=== PATIENT | female | born 1955 | race Caucasian/White ===

== ENCOUNTER 2018-12-26 08:47 | Day surgery (SDC) | payer MEDICARE, MEDICAID ==
[~2018-12-26 08:47] MED LIST: ALEN70TA60 PO; AMIT25TA9 PO; ASPI-611 PO; CHLO25TA10 PO; HYDR-4353 PO; INSU100I31 SQ; LOSA50TA64 PO; LOVA20TA2 PO; METF500T PO; METO25TA6 PO; OMEP40CA13 PO; PIOG30TA71 PO
[2018-12-26] MEDS ORDERED: LIDOcaine/PRILOcaine 5gm cream TP ONE (09:42)
--- NOTE | 2018-12-26 16:03 | NUR ---
Patient ambulated independently from [facility] and was admitted to outpatient wound care clinic for first time visit with physician. Dressings removed, wounds cleansed and lidocaine applied per order. Patient assessed and medications and medical history reviewed. Dr. Stanford at bedside accompanied by RN. Wounds assessed, time out performed by MD/RN. Wounds debrided as detailed in the physician progress/procedure note. Wound vac was ordered. Plan of care discussed with patient. Dressings and wound vac applied per physician orders. Patient instructed on the signs and symptoms of infection and to call the Wound Center if any occur or to go to the ED if we are closed: Increased pain in wound Increase in drainage from the wound Redness in the skin surrounding the wound Bleeding from the wound Temperature of 101 or greater Pt instructed that they should not be disconnected from suction for more than 2 hours at a time. If they are not able to get the suction back on they need to remove the dressing and take all of the foam out of the wound, place hydrogel gauze on/in the wound, and change the dressing daily until someone can replace the dressing. Pt instructed to call the Wound Center or their Home Health Agency immediately if they notice a change in the color or amount of the fluid in the canister, their wound looks more red than usual or has a foul smell, the skin around their wound looks reddened or irritated, the dressing feels or appears loose, they experience pain or the alarm will not turn off. Pt instructed to call 911 or go to the ED if their canister fills rapidly with blood. Patient instructed that the weight of their body puts a large amount of pressure on their wounds. This pressure keeps the new tissue from growing and inhibits new blood vessels from forming. Explained that, if they continue to bear weight on a body part that has a wound, the time it takes to heal the wound increases, the wound may get worse or the wound may not heal at all. Patient verbalized understanding of all discharge instructions and plan of care and ambulated independently out to [facility] in stable condition with no sign or symptom of distress at time of discharge. Addendum: 12/26/18 at 1607 by Eden Yuan RN Amended: Links added.
== END 2018-12-26 11:04 | disposition home or self-care (01) ==
LOC: WOUND CARE 08:47
PROVIDERS: ATTEND Surgery
DX: T81.89XA Other complications of procedures, not elsewhere classified, initial encounter (principal); E11.65 Type 2 diabetes mellitus with hyperglycemia; I25.10 Atherosclerotic heart disease of native coronary artery without angina pectoris; G89.4 Chronic pain syndrome; E78.5 Hyperlipidemia, unspecified; E78.00 Pure hypercholesterolemia, unspecified; J45.909 Unspecified asthma, uncomplicated; M19.90 Unspecified osteoarthritis, unspecified site; E66.01 Morbid (severe) obesity due to excess calories; I11.0 Hypertensive heart disease with heart failure; I50.32 Chronic diastolic (congestive) heart failure; F41.9 Anxiety disorder, unspecified; Z79.82 Long term (current) use of aspirin; Z68.35 Body mass index [BMI] 35.0-35.9, adult; Z79.4 Long term (current) use of insulin; Z87.891 Personal history of nicotine dependence; Z79.899 Other long term (current) drug therapy; Z79.84 Long term (current) use of oral hypoglycemic drugs; Z90.49 Acquired absence of other specified parts of digestive tract; Z95.1 Presence of aortocoronary bypass graft; Z79.891 Long term (current) use of opiate analgesic; Y83.8 Other surgical procedures as the cause of abnormal reaction of the patient, or of later complication, without mention of misadventure at the time of the procedure
CPT/HCPCS: 97597; 97605; A4663

== ENCOUNTER 2018-12-31 12:38 | Inpatient (IN) | payer MEDICARE, MEDICAID ==
[~2018-12-31] VITALS: Ht 165.1 cm; Wt 96.0 kg
[2018-12-31 13:31] LABS: BASOPHILS % (AUTO) 0.6 % (0-1); EOSINOPHILS # (AUTO) 0.1 X10'3 (0-0.9); EOSINOPHILS % (AUTO) 1.4 % (0-6); HEMATOCRIT 32.7 % (35.0-45.0); HEMOGLOBIN 10.4 g/dl (12.0-16.0); LYMPHOCYTES # (AUTO) 1.2 X10'3 (1.1-4.8); MEAN CORPUSCULAR HEMOGLOBIN 25.5 PG (27.0-31.0); MEAN CORPUSCULAR HGB CONC 31.8 g/dL (33.0-36.5); MEAN CORPUSCULAR VOLUME 80.1 FL (78-98); MEAN PLATELET VOLUME 7.2 FL (7.4-10.4); MONOCYTES # (AUTO) 0.6 X10'3 (0-0.9); MONOCYTES % (AUTO) 9.5 % (2-12); NEUTROPHILS # (AUTO) 4.5 X10'3 (1.8-7.7); NEUTROPHILS % (AUTO) 70.5 % (42-75); PLATELET COUNT 297 X10'3 (140-440); RED BLOOD COUNT 4.08 X10'6 (4.20-5.60); RED CELL DISTRIBUTION WIDTH 16.1 % (11.5-14.5); WHITE BLOOD COUNT 6.4 X10'3 (4.5-11.0)
[2018-12-31 13:35] LABS: CLARITY,URINE CLOUDY (Clear); COLOR,URINE YELLOW (Yellow); GLUCOSE, URINE NEGATIVE (Neg); KETONES,URINE TRACE mg/dl (Neg); LEUKOCYTE ESTERASE ,URINE NEGATIVE (Neg); NITRITES, URINE NEGATIVE (Neg); OCCULT BLOOD,URINE NEGATIVE (Neg); PH,URINE 5.5 (4.8-8.0); PROTEIN,URINE 30 mg/dl (Neg); UA COLLECTION TYPE VOIDED; UROBILINOGEN,URINE 0.2 E.U/dL (0.2-1.0)
[2018-12-31 13:44] LABS: AMORPHOUS URATES 2+; BACTERIA,URINE FEW /HPF (Neg); HYALINE CASTS >30 /LPF (NEGATIVE); RBC,URINE 0-2 /HPF (0-2); SQUAMOUS EPITHELIAL CELL,UR MODERATE /LPF (FEW); TRANSITIONAL EPI CELLS,URINE MODERATE /HPF
[2018-12-31 13:45] LABS: RENAL CELLS, URINE FEW /HPF
[2018-12-31 13:46] LABS: MUCUS STRANDS FEW /LPF (Neg)
[2018-12-31 13:50] LABS: ALANINE AMINOTRANSFERASE 17 U/L (12-78); ALBUMIN 3.1 G/DL (3.4-5.0); ALBUMIN/GLOBULIN RATIO 0.9 (1.1-1.5); ALKALINE PHOSPHATASE 54 IU/L (46-116); ANION GAP 11 (8-16); ASPARTATE AMINO TRANSFERASE 18 U/L (10-37); BILIRUBIN,TOTAL 0.5 MG/DL (0.1-1.0); BLOOD UREA NITROGEN 22 MG/DL (7-18); CALCIUM 8.2 MG/DL (8.5-10.1); CHLORIDE 103 MMOL/L (99-107); CREATININE 1.83 MG/DL (0.40-0.90); GLUCOSE 134 MG/DL (70-104); POTASSIUM 3.3 MMOL/L (3.5-5.1); SODIUM 141 MMOL/L (135-145); TOTAL CARBON DIOXIDE 26.8 MMOL/L (24-32); TOTAL PROTEIN 6.7 G/DL (6.4-8.2); eGFR 28 ML/MIN
[2018-12-31] MEDS ORDERED: normal saline 1000ML IV soln IVB ONE (14:20)
[2018-12-31] MEDS ORDERED: LEVO750T46 PO (14:54)
[2018-12-31] MEDS ORDERED: ONDA8TAB13 PO (14:54)
[2018-12-31] MEDS ORDERED: CALC-5 PO (14:55)
[2018-12-31] MEDS ORDERED: METO25TA6 PO (14:55)
[2018-12-31] MEDS ORDERED: magnesium hydroxide 30ml (MOM) UD suspension PO PRN (15:25)
[2018-12-31] MEDS ORDERED: ondansetron/PF 4mg/2ml inj IV PRN (15:25)
[2018-12-31] MEDS ORDERED: mag hydrox/Alum hydrox/simeth 30ml oral suspension PO PRN (15:25)
[2018-12-31] MEDS ORDERED: acetaminophen 325mg tablet PO PRN (15:25)
[2018-12-31] MEDS ORDERED: ALENDRONATE SODIUM PO SCH (15:30)
[2018-12-31] MEDS ORDERED: non-formulary drug (Ondansetron (Ondansetron Odt) 1 TAB) PO PRN (15:30)
[2018-12-31] MEDS ORDERED: ondansetron 4mg rapidly disintigrating tab PO PRN (15:45)
[2018-12-31] MEDS: CefTRIAXone 2gm/D5W 50ml 50 ML IV SCH (16:04)
--- NOTE | 2018-12-31 16:25 | NUR ---
received pt report from FRANDY Sierra.
[2018-12-31 16:32] VITALS: BP 113/50
--- NOTE | 2018-12-31 16:32 | NUR ---
pt arrived to floor via gurney, ambulated to bed with assistance. pt attached to cardiac monitoring; VSS.
--- NOTE | 2018-12-31 16:33 | NUR ---
PAGER ID: [phone] MESSAGE: 315. Speaker, Dorothea. Carson 3.3 and does not have electrolyte replacement orders. could we put them in? thank you! MariaE lena WISE ext [phone]
[2018-12-31] MEDS: normal saline 1000ml 1,000 ML IV SCH (16:40)
[2018-12-31] MEDS ORDERED: metFORMIN 500mg tablet PO SCH (17:00)
[2018-12-31] MEDS: HYDROcodone/acetaminophen 10/325mg tab PO SCH ×2 (17:04→21:04)
[2018-12-31] MEDS ORDERED: magnesium 2GM in 50ml NS 50 ML IV PRN (17:25)
[2018-12-31] MEDS ORDERED: potassium CL 10mEq/100ml bag 100 ML IV PRN (17:25)
[2018-12-31] MEDS ORDERED: magnesium 4gm in 100ml NS 100 ML IV PRN (17:25)
[2018-12-31] MEDS ORDERED: magnesium Cl slow-release 64mg tablet PO PRN (17:25)
[2018-12-31] MEDS ORDERED: potassium Cl 20 mEq SR tablet PO PRN (17:25)
[2018-12-31 18:00] VITALS: BP 113/50
--- NOTE | 2018-12-31 18:17 | NUR ---
Patient in room MED 315. I have received report from Maria Elena WISE and had the opportunity to ask questions and assume patient care.
--- NOTE | 2018-12-31 18:38 | NUR ---
Patient report given, questions answered & plan of care reviewed with Letha WISE.
--- NOTE | 2018-12-31 18:39 | NUR ---
PAGER ID: [phone] MESSAGE: [phone] pt Speaker. TANNER critical Mg of 1.0. RN will replace. Thank you - Chayito
[2018-12-31] MEDS: potassium Cl 20 mEq SR tablet PO PRN (19:44)
[2018-12-31] MEDS ORDERED: CALCIUM CARBONATE PO SCH (20:00)
[2018-12-31] MEDS ORDERED: VITAMIN D3 PO SCH (20:00)
[2018-12-31] MEDS ORDERED: [UNRECOGNIZED DRUG - OTHER] PO SCH (20:00)
[2018-12-31] MEDS ORDERED: insulin glargine (Lantus) pen - multi-dose SQ SCH (21:00)
[2018-12-31] MEDS: amitriptyline 50mg tablet PO SCH (21:02)
[2018-12-31] MEDS: calcium carbonate/vitamin D3 tablet PO SCH (21:03)
[2018-12-31] MEDS: metoprolol tartrate 25mg tablet PO SCH (21:05)
[2018-12-31] MEDS: heparin, porcine 5000 units/ml vial SQ SCH (21:07)
--- NOTE | 2018-12-31 21:47 | NUR ---
Page sent to Dr Orellana regarding 40 units of Lantus ordered for pt (home dose that pt has not been using since she has been ill her BG has been low she states) Dr Orellana ordered to start pt on hospital protocol starting dose of Lantus which is 12 units (her GFR is < 30 so half of that will be 6 units) Current BG is 127. 6 units to be given per protocol and to recheck BG again in 3 hours then continue with hospital protocol for DM for BG checks and Insulin in the morning.
[2018-12-31 22:00] VITALS: BP 109/54
[2018-12-31] MEDS ORDERED: glucagon, human recombinant 1mg kit SUBCUT PRN (22:00)
[2018-12-31] MEDS ORDERED: MESSAGE TO PHARMACY PO ONE (22:00)
[2018-12-31] MEDS ORDERED: dextrose 50%-water 50ml dispensing syringe IV PRN ×2 (22:00)
[2018-12-31] MEDS ORDERED: dextrose ORAL solution 15 GM/59 ML bottle PO PRN ×2 (22:00)
[2018-12-31] MEDS ORDERED: insulin Lispro (HumaLOG) vial - multi-dose SQ SCH (22:00)
--- NOTE | 2018-12-31 22:08 | NUR ---
8245 ACCE rm 315 Speaker, Naila HART Our protocol d/c's her home meds of Glucophage and Actos that she is on as well as the Lantus. Thank You
[2018-12-31] MEDS: insulin glargine (Lantus) pen - multi-dose SQ SCH (22:18)
[2019-01-01] MEDS: potassium Cl 20 mEq SR tablet PO PRN (00:11)
[2019-01-01] MEDS: normal saline 1000ml 1,000 ML IV SCH ×3 (01:23→21:25)
[2019-01-01 01:32] LABS: BASOPHILS % (AUTO) 0.7 % (0-1); EOSINOPHILS # (AUTO) 0.2 X10'3 (0-0.9); EOSINOPHILS % (AUTO) 3.8 % (0-6); HEMATOCRIT 31.3 % (35.0-45.0); HEMOGLOBIN 10.1 g/dl (12.0-16.0); LYMPHOCYTES # (AUTO) 1.4 X10'3 (1.1-4.8); LYMPHOCYTES % (AUTO) 24.6 % (21-51); MEAN CORPUSCULAR HEMOGLOBIN 25.7 PG (27.0-31.0); MEAN CORPUSCULAR HGB CONC 32.3 g/dL (33.0-36.5); MEAN CORPUSCULAR VOLUME 79.5 FL (78-98); MEAN PLATELET VOLUME 7.5 FL (7.4-10.4); MONOCYTES # (AUTO) 0.6 X10'3 (0-0.9); MONOCYTES % (AUTO) 9.6 % (2-12); NEUTROPHILS # (AUTO) 3.6 X10'3 (1.8-7.7); NEUTROPHILS % (AUTO) 61.3 % (42-75); PLATELET COUNT 280 X10'3 (140-440); RED BLOOD COUNT 3.93 X10'6 (4.20-5.60); RED CELL DISTRIBUTION WIDTH 16.1 % (11.5-14.5); WHITE BLOOD COUNT 5.9 X10'3 (4.5-11.0)
[2019-01-01 01:48] LABS: ALBUMIN 2.8 G/DL (3.4-5.0); ANION GAP 9 (8-16); BLOOD UREA NITROGEN 22 MG/DL (7-18); BUN/CREATININE RATIO 15.1 (6.6-38.0); CALCIUM 7.8 MG/DL (8.5-10.1); CHLORIDE 105 MMOL/L (99-107); CREATININE 1.46 MG/DL (0.40-0.90); GLUCOSE 145 MG/DL (70-104); MAGNESIUM 2.2 MG/DL (1.5-2.4); POTASSIUM 3.6 MMOL/L (3.5-5.1); SODIUM 140 MMOL/L (135-145); TOTAL CARBON DIOXIDE 26.5 MMOL/L (24-32); eGFR 36 ML/MIN
[2019-01-01 02:00] VITALS: BP 99/47
--- NOTE | 2019-01-01 02:15 | NUR ---
Page to PT: 315 pt Speaker has active order for PT eval + tx. Thanks!
[2019-01-01 06:00] VITALS: BP 104/54
--- NOTE | 2019-01-01 06:11 | NUR ---
Problems reprioritized. Patient report given, questions answered & plan of care reviewed with Maria Elena WISE.
[2019-01-01] MEDS: CefTRIAXone 2gm/D5W 50ml 50 ML IV SCH (07:44)
[2019-01-01] MEDS: heparin, porcine 5000 units/ml vial SQ SCH ×2 (07:44→20:27)
[2019-01-01] MEDS: atorvastatin 10mg tablet PO SCH (07:46)
[2019-01-01] MEDS: HYDROcodone/acetaminophen 10/325mg tab PO SCH ×4 (07:46→20:28)
[2019-01-01] MEDS: calcium carbonate/vitamin D3 tablet PO SCH ×2 (07:46→20:27)
[2019-01-01] MEDS: pantoprazole 40mg Tablet.DR PO SCH (07:46)
[2019-01-01] MEDS: aspirin 81mg tablet.DR PO SCH (07:47)
[2019-01-01] MEDS: metoprolol tartrate 25mg tablet PO SCH ×2 (07:52→20:31)
[2019-01-01] MEDS ORDERED: PIOGLITAZONE HCL PO SCH (08:00)
[2019-01-01] MEDS ORDERED: non-formulary drug (Aspirin (Aspir 81) 1 TABLET) PO SCH (08:00)
[2019-01-01] MEDS ORDERED: non-formulary drug (Omeprazole (Prilosec) 1 CAP) PO SCH (08:00)
[2019-01-01] MEDS ORDERED: chlorthalidone 25mg tablet PO SCH (08:00)
[2019-01-01] MEDS: losartan 50mg tablet PO SCH (08:00)
[2019-01-01] MEDS ORDERED: LOVASTATIN PO SCH (08:00)
[2019-01-01] MEDS ORDERED: pioglitazone 15mg tablet PO SCH (08:00)
--- NOTE | 2019-01-01 09:41 | NUR ---
DM consult: Pt with A1c 9.0 previously seen by HOLGER 11/21/18 provided with written and verbal DM ed with referral to outpatient DM class and RD contact information; no further education warranted at this time. Pt s/p recent CABG with recent placement of wound VAC to anterior chest wall. Pt admit with intractable N/V with diarrhea and E. coli to anterior chest wall. Per H&P pt no longer with diarrhea or vomiting. Pt currently on heart healthy CHO controlled diet with 25-50% PO intake first meal. [facility] 12/30. Will continue to follow and monitor need for ONS. Recommendations: 1) Continue with heart healthy CHO controlled diet 2) Monitor need for ONS 3) Wt per rx Addendum: 01/01/19 at [address] RD Amended: Links added.
[2019-01-01 11:00] VITALS: BP 90/58
[2019-01-01 15:00] VITALS: BP 98/47
--- NOTE | 2019-01-01 15:33 | NUR ---
WOUND VAC EDUCATION PROVIDED BY WOUND CARE 1. Patient instructed to call the Wound Center or their Home Health Agency immediately if: * They notice a change in the color or amount of the fluid in the canister. * Their wound looks more red than usual or has a foul smell. * The skin around their wound looks reddened or irritated. * The dressing feels loose or appears to be loose. * They experience any increase or changes in their pain. * The alarm will not turn off. 2. Patient instructed that they should not be disconnected from suction for more than 2 hours at a time. * If they are not able to get the suction back on, they need to remove the dressing and take all of the foam out of the wound. * Then moisten sterile gauze with normal saline and place on/in the wound. * Change the dressing once a day until arrangements have been made to replace the wound vac dressing. 3. Patient instructed to turn the wound vac machine OFF and call 911 or go to the ED immediately if their canister fills rapidly with blood. 4. If any of these occur while in the hospital tell a nurse immediately. Addendum: 01/01/19 at 1533 by Rigoberto Martinez RN Amended: Links added.
[2019-01-01] MEDS: nystatin 15 GM powder TP SCH ×2 (16:36→20:32)
[2019-01-01 18:00] VITALS: BP 152/72
--- NOTE | 2019-01-01 18:08 | NUR ---
Problems reprioritized. Patient report given, questions answered & plan of care reviewed with Letha WISE.
--- NOTE | 2019-01-01 18:12 | NUR ---
Patient in room MED 315. I have received report from Maria Elena WISE and had the opportunity to ask questions and assume patient care.
--- NOTE | 2019-01-01 18:15 | NUR ---
[place] documentation: I have reviewed and agree with interventions, assessments performed and documented by Roula WISE. [place] Medication Administration: For this medication-pass time frame, all medication were reviewed, dispensed, administered and documented per hospital policy by Roula WISE .
[2019-01-01] MEDS: lactobacillus rhamnosus 10,000 MMU CELLS/CAPSULE PO SCH (20:27)
[2019-01-01] MEDS: amitriptyline 50mg tablet PO SCH (20:27)
[2019-01-01] MEDS: insulin glargine (Lantus) pen - multi-dose SQ SCH (21:18)
[2019-01-01 22:00] VITALS: BP 103/40
[2019-01-02 02:00] VITALS: BP 99/53
[2019-01-02 06:00] VITALS: BP 137/61
--- NOTE | 2019-01-02 06:14 | NUR ---
Problems reprioritized. Patient report given, questions answered & plan of care reviewed with Maria Elena WISE.
--- NOTE | 2019-01-02 06:15 | NUR ---
Patient in room MED 315. I have received report from FRANDY CUNHA and had the opportunity to ask questions and assume patient care.
[2019-01-02 06:16] LABS: BASOPHILS % (AUTO) 0.8 % (0-1); EOSINOPHILS # (AUTO) 0.3 X10'3 (0-0.9); EOSINOPHILS % (AUTO) 5.1 % (0-6); HEMATOCRIT 33.4 % (35.0-45.0); HEMOGLOBIN 10.5 g/dl (12.0-16.0); LYMPHOCYTES # (AUTO) 1.5 X10'3 (1.1-4.8); LYMPHOCYTES % (AUTO) 28.5 % (21-51); MEAN CORPUSCULAR HEMOGLOBIN 25.2 PG (27.0-31.0); MEAN CORPUSCULAR HGB CONC 31.4 g/dL (33.0-36.5); MEAN CORPUSCULAR VOLUME 80.4 FL (78-98); MEAN PLATELET VOLUME 7.4 FL (7.4-10.4); MONOCYTES # (AUTO) 0.4 X10'3 (0-0.9); MONOCYTES % (AUTO) 8.2 % (2-12); NEUTROPHILS % (AUTO) 57.4 % (42-75); PLATELET COUNT 280 X10'3 (140-440); RED BLOOD COUNT 4.15 X10'6 (4.20-5.60); RED CELL DISTRIBUTION WIDTH 16.3 % (11.5-14.5); WHITE BLOOD COUNT 5.2 X10'3 (4.5-11.0)
[2019-01-02] MEDS: normal saline 1000ml 1,000 ML IV SCH (06:16)
[2019-01-02 06:32] LABS: ALBUMIN 2.8 G/DL (3.4-5.0); ANION GAP 8 (8-16); BLOOD UREA NITROGEN 12 MG/DL (7-18); BUN/CREATININE RATIO 14.3 (6.6-38.0); CALCIUM 8.8 MG/DL (8.5-10.1); CHLORIDE 106 MMOL/L (99-107); CREATININE 0.84 MG/DL (0.40-0.90); GLUCOSE 159 MG/DL (70-104); MAGNESIUM 1.6 MG/DL (1.5-2.4); POTASSIUM 3.7 MMOL/L (3.5-5.1); SODIUM 141 MMOL/L (135-145); TOTAL CARBON DIOXIDE 27.2 MMOL/L (24-32); eGFR 68 ML/MIN
[2019-01-02] MEDS: CefTRIAXone 2gm/D5W 50ml 50 ML IV SCH (07:13)
[2019-01-02] MEDS: lactobacillus rhamnosus 10,000 MMU CELLS/CAPSULE PO SCH (07:14)
[2019-01-02] MEDS: metoprolol tartrate 25mg tablet PO SCH (07:15)
[2019-01-02] MEDS: aspirin 81mg tablet.DR PO SCH (07:16)
[2019-01-02] MEDS: pantoprazole 40mg Tablet.DR PO SCH (07:16)
[2019-01-02] MEDS: losartan 50mg tablet PO SCH (07:16)
[2019-01-02] MEDS: calcium carbonate/vitamin D3 tablet PO SCH (07:16)
[2019-01-02] MEDS: HYDROcodone/acetaminophen 10/325mg tab PO SCH (07:17)
[2019-01-02] MEDS: atorvastatin 10mg tablet PO SCH (07:17)
[2019-01-02] MEDS: heparin, porcine 5000 units/ml vial SQ SCH (07:17)
[2019-01-02] MEDS: nystatin 15 GM powder TP SCH (07:17)
[2019-01-02 11:00] VITALS: BP 104/71
[2019-01-02] MEDS ORDERED: CEPH500C5 PO (11:15)
--- NOTE | 2019-01-02 12:09 | NUR ---
pt attached to home wound vac, wound care photos taken less than 24 hours ago. d/c education provided, including follow up and medications; all questions answered. pt removed from cardiac monitoring, IV removed; cannula intact. pt wheel down with all belongings.
== END 2019-01-02 12:10 | disposition home health service (06) | DRG 862 ==
LOC: ER 12:39 → MED 3N 16:35 → CMPBEDREQ 19:49
PROVIDERS: ADMIT Family Medicine; ATTEND Family Medicine
DX: T81.49XA Infection following a procedure, other surgical site, initial encounter (principal); N17.0 Acute kidney failure with tubular necrosis; K52.9 Noninfective gastroenteritis and colitis, unspecified; E86.0 Dehydration; E87.6 Hypokalemia; D64.9 Anemia, unspecified; E11.9 Type 2 diabetes mellitus without complications; E78.00 Pure hypercholesterolemia, unspecified; E78.5 Hyperlipidemia, unspecified; G89.4 Chronic pain syndrome; F41.9 Anxiety disorder, unspecified; M19.90 Unspecified osteoarthritis, unspecified site; B96.20 Unspecified Escherichia coli [E. coli] as the cause of diseases classified elsewhere; E83.42 Hypomagnesemia; I10 Essential (primary) hypertension; Y83.8 Other surgical procedures as the cause of abnormal reaction of the patient, or of later complication, without mention of misadventure at the time of the procedure; I25.10 Atherosclerotic heart disease of native coronary artery without angina pectoris; J45.909 Unspecified asthma, uncomplicated; N28.89 Other specified disorders of kidney and ureter; Z79.4 Long term (current) use of insulin; Z82.49 Family history of ischemic heart disease and other diseases of the circulatory system; Z95.1 Presence of aortocoronary bypass graft; Z79.82 Long term (current) use of aspirin; Z79.84 Long term (current) use of oral hypoglycemic drugs; Z56.0 Unemployment, unspecified; Z90.49 Acquired absence of other specified parts of digestive tract; Y92.89 Other specified places as the place of occurrence of the external cause
CPT/HCPCS: 36415; 71045; 80048; 80053; 81001; 82948; 83605; 83735; 84145; 84439; 84443; 84484; 85025; 87040; 87081; 87088; 93005; 96361; 96365; 97110; 97116; 97161; 97530; 99285; G0378; J0696; J1644; J1815; J3475; J7030

== ENCOUNTER 2019-01-09 08:55 | Day surgery (SDC) | payer MEDICARE, MEDICAID ==
[~2019-01-09 08:55] MED LIST changes: +CALC-5 PO; +CEPH500C5 PO; -CHLO25TA10 PO; +ONDA8TAB13 PO
[2019-01-09] MEDS ORDERED: LIDOcaine 2% 5ml jelly ONE (09:31)
--- NOTE | 2019-01-09 13:32 | NUR ---
Patient ambulated independently from [facility] and was admitted to outpatient wound care for physician visit with Francisco Stanford MD. Dressing removed, wound cleansed. Patient assessed for changes in conditions, medications and medical history. 0958 - blood glucose 166. Patient instructed that elevated blood sugars delay healing of the wound and can cause further complications including but not limited to amputation of toes or feet. 1002 - Dr. Stanford at bedside accompanied by RN. Wound assessed, time out performed by MD/RN. Wound debrided as detailed in the physician progress/procedure note. Plan of care discussed with patient. Dressings placed per MD orders. Pt instructed that they should not be disconnected from suction for more than 2 hours at a time. If they are not able to get the suction back on they need to remove the dressing and take all of the foam out of the wound, place hydrogel gauze on/in the wound, and change the dressing daily until someone can replace the dressing. Pt instructed to call the Wound Center or their Home Health Agency immediately if they notice a change in the color or amount of the fluid in the canister, their wound looks more red than usual or has a foul smell, the skin around their wound looks reddened or irritated, the dressing feels or appears loose, they experience pain or the alarm will not turn off. Pt instructed to call 911 or go to the ED if their canister fills rapidly with blood. Patient instructed on the signs and symptoms of infection and to call the Wound Center if any occur or to go to the ED if we are closed: Increased pain in wound Increase in drainage from the wound Redness in the skin surrounding the wound Bleeding from the wound Temperature of 101 or greater Patient instructed that the weight of their body puts a large amount of pressure on their wounds. This pressure keeps the new tissue from growing and inhibits new blood vessels from forming. Explained that, if they continue to bear weight on a body part that has a wound, the time it takes to heal the wound increases, the wound may get worse or the wound may not heal at all. Patient verbalized understanding of all discharge instructions and plan of care and ambulated independently out to [facility] in stable condition with no sign or symptom of distress at time of discharge. Report called to [facility].
== END 2019-01-09 11:01 | disposition home or self-care (01) ==
LOC: WOUND CARE 08:55
PROVIDERS: ATTEND Surgery
DX: T81.89XD Other complications of procedures, not elsewhere classified, subsequent encounter (principal); L98.492 Non-pressure chronic ulcer of skin of other sites with fat layer exposed; E11.65 Type 2 diabetes mellitus with hyperglycemia; I25.10 Atherosclerotic heart disease of native coronary artery without angina pectoris; G89.4 Chronic pain syndrome; E78.5 Hyperlipidemia, unspecified; E78.00 Pure hypercholesterolemia, unspecified; J45.909 Unspecified asthma, uncomplicated; M19.90 Unspecified osteoarthritis, unspecified site; E66.01 Morbid (severe) obesity due to excess calories; I11.0 Hypertensive heart disease with heart failure; I50.32 Chronic diastolic (congestive) heart failure; F41.9 Anxiety disorder, unspecified; Z79.82 Long term (current) use of aspirin; Z68.35 Body mass index [BMI] 35.0-35.9, adult; Z79.4 Long term (current) use of insulin; Z87.891 Personal history of nicotine dependence; Z79.899 Other long term (current) drug therapy; Z79.84 Long term (current) use of oral hypoglycemic drugs; Z90.49 Acquired absence of other specified parts of digestive tract; Z95.1 Presence of aortocoronary bypass graft; Z79.891 Long term (current) use of opiate analgesic; Y83.8 Other surgical procedures as the cause of abnormal reaction of the patient, or of later complication, without mention of misadventure at the time of the procedure
CPT/HCPCS: 11042; 36416; 82948; 97605; A6223; A4456; A4663

== ENCOUNTER 2019-01-16 09:00 | Day surgery (SDC) | payer MEDICARE, MEDICAID ==
[2019-01-16] MEDS ORDERED: LIDOcaine 2% 5ml jelly ONE (09:23)
== END 2019-01-16 11:15 | disposition home or self-care (01) ==
LOC: WOUND CARE 09:00
PROVIDERS: ATTEND Surgery
DX: T81.31XD Disruption of external operation (surgical) wound, not elsewhere classified, subsequent encounter (principal); E11.622 Type 2 diabetes mellitus with other skin ulcer; L98.492 Non-pressure chronic ulcer of skin of other sites with fat layer exposed; E11.65 Type 2 diabetes mellitus with hyperglycemia; I25.10 Atherosclerotic heart disease of native coronary artery without angina pectoris; G89.4 Chronic pain syndrome; E78.5 Hyperlipidemia, unspecified; E78.00 Pure hypercholesterolemia, unspecified; J45.909 Unspecified asthma, uncomplicated; M19.90 Unspecified osteoarthritis, unspecified site; E66.01 Morbid (severe) obesity due to excess calories; I11.0 Hypertensive heart disease with heart failure; I50.32 Chronic diastolic (congestive) heart failure; F41.9 Anxiety disorder, unspecified; Z79.82 Long term (current) use of aspirin; Z68.35 Body mass index [BMI] 35.0-35.9, adult; Z79.4 Long term (current) use of insulin; Z87.891 Personal history of nicotine dependence; Z79.899 Other long term (current) drug therapy; Z79.84 Long term (current) use of oral hypoglycemic drugs; Z95.1 Presence of aortocoronary bypass graft; Z79.891 Long term (current) use of opiate analgesic; Y83.8 Other surgical procedures as the cause of abnormal reaction of the patient, or of later complication, without mention of misadventure at the time of the procedure
CPT/HCPCS: 11042; 36416; 82948; A6223; A4663

== ENCOUNTER 2019-01-26 08:42 | Day surgery (SDC) | payer MEDICARE, MEDICAID ==
[2019-01-26] MEDS ORDERED: LIDOcaine 2% 5ml jelly ONE ×2 (09:19)
== END 2019-01-26 11:39 | disposition home or self-care (01) ==
LOC: WOUND CARE 08:42
PROVIDERS: ATTEND Surgery
DX: T81.31XD Disruption of external operation (surgical) wound, not elsewhere classified, subsequent encounter (principal); E11.622 Type 2 diabetes mellitus with other skin ulcer; L98.492 Non-pressure chronic ulcer of skin of other sites with fat layer exposed; E11.65 Type 2 diabetes mellitus with hyperglycemia; I25.10 Atherosclerotic heart disease of native coronary artery without angina pectoris; G89.4 Chronic pain syndrome; E78.5 Hyperlipidemia, unspecified; E78.00 Pure hypercholesterolemia, unspecified; J45.909 Unspecified asthma, uncomplicated; M19.90 Unspecified osteoarthritis, unspecified site; E66.01 Morbid (severe) obesity due to excess calories; I11.0 Hypertensive heart disease with heart failure; I50.32 Chronic diastolic (congestive) heart failure; F41.9 Anxiety disorder, unspecified; Z79.82 Long term (current) use of aspirin; Z68.35 Body mass index [BMI] 35.0-35.9, adult; Z79.4 Long term (current) use of insulin; Z87.891 Personal history of nicotine dependence; Z79.899 Other long term (current) drug therapy; Z79.84 Long term (current) use of oral hypoglycemic drugs; Z95.1 Presence of aortocoronary bypass graft; Z79.891 Long term (current) use of opiate analgesic; Y83.8 Other surgical procedures as the cause of abnormal reaction of the patient, or of later complication, without mention of misadventure at the time of the procedure
CPT/HCPCS: 36416; 82948; 97605; A4663

== ENCOUNTER 2019-02-02 08:43 | Day surgery (SDC) | payer MEDICARE, MEDICAID ==
[2019-02-02] MEDS ORDERED: LIDOcaine 2% 5ml jelly ONE (10:18)
== END 2019-02-02 11:30 | disposition home or self-care (01) ==
LOC: WOUND CARE 08:43
PROVIDERS: ATTEND Surgery
DX: T81.31XD Disruption of external operation (surgical) wound, not elsewhere classified, subsequent encounter (principal); E11.622 Type 2 diabetes mellitus with other skin ulcer; L98.492 Non-pressure chronic ulcer of skin of other sites with fat layer exposed; E11.65 Type 2 diabetes mellitus with hyperglycemia; I25.10 Atherosclerotic heart disease of native coronary artery without angina pectoris; G89.4 Chronic pain syndrome; E78.5 Hyperlipidemia, unspecified; E78.00 Pure hypercholesterolemia, unspecified; J45.909 Unspecified asthma, uncomplicated; M19.90 Unspecified osteoarthritis, unspecified site; E66.01 Morbid (severe) obesity due to excess calories; I11.0 Hypertensive heart disease with heart failure; I50.32 Chronic diastolic (congestive) heart failure; F41.9 Anxiety disorder, unspecified; Z79.82 Long term (current) use of aspirin; Z68.35 Body mass index [BMI] 35.0-35.9, adult; Z79.4 Long term (current) use of insulin; Z87.891 Personal history of nicotine dependence; Z79.899 Other long term (current) drug therapy; Z79.84 Long term (current) use of oral hypoglycemic drugs; Z95.1 Presence of aortocoronary bypass graft; Z79.891 Long term (current) use of opiate analgesic; Y83.8 Other surgical procedures as the cause of abnormal reaction of the patient, or of later complication, without mention of misadventure at the time of the procedure

== ENCOUNTER 2019-02-11 08:44 | Day surgery (SDC) | payer MEDICARE, MEDICAID ==
[2019-02-11] MEDS ORDERED: LIDOcaine 2% 5ml jelly ONE (09:43)
== END 2019-02-11 11:47 | disposition home or self-care (01) ==
LOC: WOUND CARE 08:44
PROVIDERS: ATTEND Surgery
DX: T81.31XD Disruption of external operation (surgical) wound, not elsewhere classified, subsequent encounter (principal); E11.622 Type 2 diabetes mellitus with other skin ulcer; L98.492 Non-pressure chronic ulcer of skin of other sites with fat layer exposed; E11.65 Type 2 diabetes mellitus with hyperglycemia; I25.10 Atherosclerotic heart disease of native coronary artery without angina pectoris; G89.4 Chronic pain syndrome; E78.5 Hyperlipidemia, unspecified; E78.00 Pure hypercholesterolemia, unspecified; J45.909 Unspecified asthma, uncomplicated; M19.90 Unspecified osteoarthritis, unspecified site; E66.01 Morbid (severe) obesity due to excess calories; I11.0 Hypertensive heart disease with heart failure; I50.32 Chronic diastolic (congestive) heart failure; F41.9 Anxiety disorder, unspecified; Z79.82 Long term (current) use of aspirin; Z68.35 Body mass index [BMI] 35.0-35.9, adult; Z79.4 Long term (current) use of insulin; Z87.891 Personal history of nicotine dependence; Z79.899 Other long term (current) drug therapy; Z79.84 Long term (current) use of oral hypoglycemic drugs; Z95.1 Presence of aortocoronary bypass graft; Z79.891 Long term (current) use of opiate analgesic; Y83.8 Other surgical procedures as the cause of abnormal reaction of the patient, or of later complication, without mention of misadventure at the time of the procedure
CPT/HCPCS: 82948; 97597; A4663

== ENCOUNTER 2019-02-16 08:45 | Day surgery (SDC) | payer MEDICARE, MEDICAID ==
[2019-02-16] MEDS ORDERED: LIDOcaine 2% 5ml jelly ONE (09:30)
== END 2019-02-16 11:05 | disposition home or self-care (01) ==
LOC: WOUND CARE 08:45
PROVIDERS: ATTEND Surgery
DX: T81.31XD Disruption of external operation (surgical) wound, not elsewhere classified, subsequent encounter (principal); E11.622 Type 2 diabetes mellitus with other skin ulcer; L98.492 Non-pressure chronic ulcer of skin of other sites with fat layer exposed; E11.65 Type 2 diabetes mellitus with hyperglycemia; I25.10 Atherosclerotic heart disease of native coronary artery without angina pectoris; G89.4 Chronic pain syndrome; E78.5 Hyperlipidemia, unspecified; E78.00 Pure hypercholesterolemia, unspecified; J45.909 Unspecified asthma, uncomplicated; M19.90 Unspecified osteoarthritis, unspecified site; E66.01 Morbid (severe) obesity due to excess calories; I11.0 Hypertensive heart disease with heart failure; I50.32 Chronic diastolic (congestive) heart failure; F41.9 Anxiety disorder, unspecified; Z79.82 Long term (current) use of aspirin; Z68.35 Body mass index [BMI] 35.0-35.9, adult; Z79.4 Long term (current) use of insulin; Z87.891 Personal history of nicotine dependence; Z79.899 Other long term (current) drug therapy; Z79.84 Long term (current) use of oral hypoglycemic drugs; Z95.1 Presence of aortocoronary bypass graft; Z79.891 Long term (current) use of opiate analgesic; Y83.8 Other surgical procedures as the cause of abnormal reaction of the patient, or of later complication, without mention of misadventure at the time of the procedure
CPT/HCPCS: 36416; 82948; 97597; A4663; A6021; A6154

== ENCOUNTER 2019-02-23 08:47 | Day surgery (SDC) | payer MEDICARE, MEDICAID ==
[2019-02-23] MEDS ORDERED: LIDOcaine/PRILOcaine 5gm cream TP ONE (09:37)
[2019-02-23] MEDS ORDERED: LIDOcaine 2% 5ml jelly ONE (10:50)
[2019-02-23] MEDS ORDERED: LIDOcaine 1%/PF 5ML 10 MG/ML VIAL ONE (10:58)
== END 2019-02-23 11:52 | disposition home or self-care (01) ==
LOC: WOUND CARE 08:47
PROVIDERS: ATTEND Surgery
DX: T81.31XD Disruption of external operation (surgical) wound, not elsewhere classified, subsequent encounter (principal); E11.622 Type 2 diabetes mellitus with other skin ulcer; L98.492 Non-pressure chronic ulcer of skin of other sites with fat layer exposed; E11.65 Type 2 diabetes mellitus with hyperglycemia; I25.10 Atherosclerotic heart disease of native coronary artery without angina pectoris; G89.4 Chronic pain syndrome; E78.5 Hyperlipidemia, unspecified; E78.00 Pure hypercholesterolemia, unspecified; J45.909 Unspecified asthma, uncomplicated; M19.90 Unspecified osteoarthritis, unspecified site; E66.01 Morbid (severe) obesity due to excess calories; I11.0 Hypertensive heart disease with heart failure; I50.32 Chronic diastolic (congestive) heart failure; F41.9 Anxiety disorder, unspecified; Z79.82 Long term (current) use of aspirin; Z68.35 Body mass index [BMI] 35.0-35.9, adult; Z79.4 Long term (current) use of insulin; Z87.891 Personal history of nicotine dependence; Z79.899 Other long term (current) drug therapy; Z79.84 Long term (current) use of oral hypoglycemic drugs; Z95.1 Presence of aortocoronary bypass graft; Z79.891 Long term (current) use of opiate analgesic; Y83.8 Other surgical procedures as the cause of abnormal reaction of the patient, or of later complication, without mention of misadventure at the time of the procedure
CPT/HCPCS: 36416; 82948; 97597; 97605; A4456; A4663

== ENCOUNTER 2019-03-04 09:02 | Day surgery (SDC) | payer MEDICARE, MEDICAID ==
[2019-03-04] MEDS ORDERED: LIDOcaine 2% 5ml jelly ONE (09:31)
== END 2019-03-04 11:04 | disposition home or self-care (01) ==
LOC: WOUND CARE 09:02
PROVIDERS: ATTEND Surgery
DX: T81.31XD Disruption of external operation (surgical) wound, not elsewhere classified, subsequent encounter (principal); E11.622 Type 2 diabetes mellitus with other skin ulcer; L98.492 Non-pressure chronic ulcer of skin of other sites with fat layer exposed; E11.65 Type 2 diabetes mellitus with hyperglycemia; I25.10 Atherosclerotic heart disease of native coronary artery without angina pectoris; G89.4 Chronic pain syndrome; E78.5 Hyperlipidemia, unspecified; E78.00 Pure hypercholesterolemia, unspecified; J45.909 Unspecified asthma, uncomplicated; M19.90 Unspecified osteoarthritis, unspecified site; E66.01 Morbid (severe) obesity due to excess calories; I11.0 Hypertensive heart disease with heart failure; I50.32 Chronic diastolic (congestive) heart failure; F41.9 Anxiety disorder, unspecified; Z79.82 Long term (current) use of aspirin; Z68.35 Body mass index [BMI] 35.0-35.9, adult; Z79.4 Long term (current) use of insulin; Z87.891 Personal history of nicotine dependence; Z79.899 Other long term (current) drug therapy; Z79.84 Long term (current) use of oral hypoglycemic drugs; Z95.1 Presence of aortocoronary bypass graft; Z79.891 Long term (current) use of opiate analgesic; Y83.8 Other surgical procedures as the cause of abnormal reaction of the patient, or of later complication, without mention of misadventure at the time of the procedure
CPT/HCPCS: 36416; 82948; A6222; C5271; Q4102; A4456; A4663; A6250

== ENCOUNTER 2019-03-11 08:45 | Outpatient (CLI) | payer MEDICARE, MEDICAID | END 2019-03-11 11:25 | disposition home or self-care (01) | LOC: WOUND CARE 08:45 → EDSTATUS 09:00 → WOUND CARE 11:25 | PROVIDERS: ATTEND Surgery | DX: T81.31XD Disruption of external operation (surgical) wound, not elsewhere classified, subsequent encounter (principal); E11.622 Type 2 diabetes mellitus with other skin ulcer; L98.492 Non-pressure chronic ulcer of skin of other sites with fat layer exposed; E11.65 Type 2 diabetes mellitus with hyperglycemia; I25.10 Atherosclerotic heart disease of native coronary artery without angina pectoris; G89.4 Chronic pain syndrome; E78.5 Hyperlipidemia, unspecified; E78.00 Pure hypercholesterolemia, unspecified; J45.909 Unspecified asthma, uncomplicated; M19.90 Unspecified osteoarthritis, unspecified site; E66.01 Morbid (severe) obesity due to excess calories; I11.0 Hypertensive heart disease with heart failure; I50.32 Chronic diastolic (congestive) heart failure; F41.9 Anxiety disorder, unspecified; Z79.82 Long term (current) use of aspirin; Z68.35 Body mass index [BMI] 35.0-35.9, adult; Z79.4 Long term (current) use of insulin; Z87.891 Personal history of nicotine dependence; Z79.899 Other long term (current) drug therapy; Z79.84 Long term (current) use of oral hypoglycemic drugs; Z95.1 Presence of aortocoronary bypass graft; Z79.891 Long term (current) use of opiate analgesic; Y83.8 Other surgical procedures as the cause of abnormal reaction of the patient, or of later complication, without mention of misadventure at the time of the procedure | CPT/HCPCS: 36416; 82948; 97605; A6222; A4456; A4663; A6234 ==

== ENCOUNTER 2019-03-18 09:28 | Day surgery (SDC) | payer MEDICARE, MEDICAID ==
[2019-03-18] MEDS ORDERED: LIDOcaine 2% 5ml jelly ONE (09:58)
== END 2019-03-18 11:43 | disposition home or self-care (01) ==
LOC: WOUND CARE 09:28
PROVIDERS: ATTEND Surgery
DX: T81.31XD Disruption of external operation (surgical) wound, not elsewhere classified, subsequent encounter (principal); E11.622 Type 2 diabetes mellitus with other skin ulcer; L98.492 Non-pressure chronic ulcer of skin of other sites with fat layer exposed; E11.65 Type 2 diabetes mellitus with hyperglycemia; I25.10 Atherosclerotic heart disease of native coronary artery without angina pectoris; G89.4 Chronic pain syndrome; E78.5 Hyperlipidemia, unspecified; E78.00 Pure hypercholesterolemia, unspecified; J45.909 Unspecified asthma, uncomplicated; M19.90 Unspecified osteoarthritis, unspecified site; E66.01 Morbid (severe) obesity due to excess calories; I11.0 Hypertensive heart disease with heart failure; I50.32 Chronic diastolic (congestive) heart failure; F41.9 Anxiety disorder, unspecified; Z79.82 Long term (current) use of aspirin; Z68.35 Body mass index [BMI] 35.0-35.9, adult; Z79.4 Long term (current) use of insulin; Z87.891 Personal history of nicotine dependence; Z79.899 Other long term (current) drug therapy; Z79.84 Long term (current) use of oral hypoglycemic drugs; Z95.1 Presence of aortocoronary bypass graft; Z79.891 Long term (current) use of opiate analgesic; Y83.8 Other surgical procedures as the cause of abnormal reaction of the patient, or of later complication, without mention of misadventure at the time of the procedure
CPT/HCPCS: 36416; 82948; A6222; C5271; Q4102; A4456; A4663; A6234; A6250

== ENCOUNTER 2019-03-25 08:56 | Day surgery (SDC) | payer MEDICARE, MEDICAID | END 2019-03-25 12:00 | disposition home or self-care (01) | LOC: WOUND CARE 08:56 | PROVIDERS: ATTEND Surgery | DX: T81.31XD Disruption of external operation (surgical) wound, not elsewhere classified, subsequent encounter (principal); E11.622 Type 2 diabetes mellitus with other skin ulcer; L98.492 Non-pressure chronic ulcer of skin of other sites with fat layer exposed; E11.65 Type 2 diabetes mellitus with hyperglycemia; I25.10 Atherosclerotic heart disease of native coronary artery without angina pectoris; G89.4 Chronic pain syndrome; E78.5 Hyperlipidemia, unspecified; E78.00 Pure hypercholesterolemia, unspecified; J45.909 Unspecified asthma, uncomplicated; M19.90 Unspecified osteoarthritis, unspecified site; E66.01 Morbid (severe) obesity due to excess calories; I11.0 Hypertensive heart disease with heart failure; I50.32 Chronic diastolic (congestive) heart failure; F41.9 Anxiety disorder, unspecified; Z79.82 Long term (current) use of aspirin; Z68.35 Body mass index [BMI] 35.0-35.9, adult; Z79.4 Long term (current) use of insulin; Z87.891 Personal history of nicotine dependence; Z79.899 Other long term (current) drug therapy; Z79.84 Long term (current) use of oral hypoglycemic drugs; Z95.1 Presence of aortocoronary bypass graft; Z79.891 Long term (current) use of opiate analgesic; Y83.8 Other surgical procedures as the cause of abnormal reaction of the patient, or of later complication, without mention of misadventure at the time of the procedure | CPT/HCPCS: 36416; 82948; A6222; C5271; Q4102; A4456; A6154 ==

== ENCOUNTER 2019-04-01 08:40 | Day surgery (SDC) | payer MEDICARE, MEDICAID ==
[2019-04-01] MEDS ORDERED: LIDOcaine 2% 5ml jelly ONE (09:22)
== END 2019-04-01 10:37 | disposition home or self-care (01) ==
LOC: WOUND CARE 08:40
PROVIDERS: ATTEND Surgery
DX: T81.31XD Disruption of external operation (surgical) wound, not elsewhere classified, subsequent encounter (principal); E11.622 Type 2 diabetes mellitus with other skin ulcer; L98.492 Non-pressure chronic ulcer of skin of other sites with fat layer exposed; E11.65 Type 2 diabetes mellitus with hyperglycemia; I25.10 Atherosclerotic heart disease of native coronary artery without angina pectoris; G89.4 Chronic pain syndrome; E78.5 Hyperlipidemia, unspecified; E78.00 Pure hypercholesterolemia, unspecified; J45.909 Unspecified asthma, uncomplicated
CPT/HCPCS: 36416; 82948; 97597; A4663; A6021; A6154

== ENCOUNTER 2019-04-15 08:37 | Day surgery (SDC) | payer MEDICARE, MEDICAID ==
[2019-04-15] MEDS ORDERED: LIDOcaine 2% 5ml jelly ONE (08:59)
== END 2019-04-15 10:31 | disposition home or self-care (01) ==
LOC: WOUND CARE 08:37
PROVIDERS: ATTEND Surgery
DX: T81.31XD Disruption of external operation (surgical) wound, not elsewhere classified, subsequent encounter (principal); E11.622 Type 2 diabetes mellitus with other skin ulcer; L98.492 Non-pressure chronic ulcer of skin of other sites with fat layer exposed; E11.65 Type 2 diabetes mellitus with hyperglycemia; I25.10 Atherosclerotic heart disease of native coronary artery without angina pectoris; G89.4 Chronic pain syndrome; E78.5 Hyperlipidemia, unspecified; E78.00 Pure hypercholesterolemia, unspecified; J45.909 Unspecified asthma, uncomplicated
CPT/HCPCS: 36416; 97597; A4663; A6021; A6154

== ENCOUNTER 2019-04-17 16:37 | Emergency (ER) | payer MEDICARE, MEDICAID ==
[~2019-04-17] VITALS: Ht 165.1 cm; Wt 89.0 kg
[2019-04-17 17:05] LABS: CLARITY,URINE CLEAR (Clear); COLOR,URINE STRAW (Yellow); GLUCOSE, URINE >=1000 mg/dl (Neg); KETONES,URINE NEGATIVE (Neg); LEUKOCYTE ESTERASE ,URINE NEGATIVE (Neg); NITRITES, URINE NEGATIVE (Neg); OCCULT BLOOD,URINE NEGATIVE (Neg); PH,URINE 6.5 (4.8-8.0); PROTEIN,URINE NEGATIVE (Neg); UROBILINOGEN,URINE 0.2 E.U/dL (0.2-1.0)
[2019-04-17 17:06] LABS: UA COLLECTION TYPE CLN CATCH MIDSTREAM
[2019-04-17 17:10] LABS: BACTERIA,URINE NONE SEEN /HPF (Neg); MUCUS STRANDS NONE SEEN /LPF (Neg); RBC,URINE NONE SEEN /HPF (0-2); SQUAMOUS EPITHELIAL CELL,UR NONE SEEN /LPF (FEW); WBC,URINE 0-4 /HPF (0-4)
[2019-04-17 17:13] LABS: BASOPHILS % (AUTO) 0.8 % (0-1); EOSINOPHILS # (AUTO) 0.2 X10'3 (0-0.9); EOSINOPHILS % (AUTO) 3.6 % (0-6); HEMATOCRIT 32.1 % (35.0-45.0); HEMOGLOBIN 10.3 g/dl (12.0-16.0); LYMPHOCYTES # (AUTO) 1.4 X10'3 (1.1-4.8); LYMPHOCYTES % (AUTO) 22.8 % (21-51); MEAN CORPUSCULAR HEMOGLOBIN 24.7 PG (27.0-31.0); MEAN CORPUSCULAR HGB CONC 32.1 g/dL (33.0-36.5); MEAN CORPUSCULAR VOLUME 76.9 FL (78-98); MEAN PLATELET VOLUME 7.4 FL (7.4-10.4); MONOCYTES # (AUTO) 0.5 X10'3 (0-0.9); MONOCYTES % (AUTO) 8.5 % (2-12); NEUTROPHILS % (AUTO) 64.3 % (42-75); PLATELET COUNT 397 X10'3 (140-440); RED BLOOD COUNT 4.17 X10'6 (4.20-5.60); WHITE BLOOD COUNT 6.2 X10'3 (4.5-11.0)
[2019-04-17 17:23] LABS: ALANINE AMINOTRANSFERASE 17 U/L (12-78); ALBUMIN 3.4 G/DL (3.4-5.0); ALBUMIN/GLOBULIN RATIO 0.7 (1.1-1.5); ALKALINE PHOSPHATASE 101 IU/L (46-116); ANION GAP 6 (8-16); ASPARTATE AMINO TRANSFERASE 15 U/L (10-37); BILIRUBIN,TOTAL 0.6 MG/DL (0.1-1.0); BLOOD UREA NITROGEN 12 MG/DL (7-18); CALCIUM 9.2 MG/DL (8.5-10.1); CHLORIDE 98 MMOL/L (99-107); GLUCOSE 288 MG/DL (70-104); POTASSIUM 4.2 MMOL/L (3.5-5.1); SODIUM 135 MMOL/L (135-145); TOTAL CARBON DIOXIDE 31.3 MMOL/L (24-32); eGFR 72 ML/MIN
[2019-04-17] MEDS ORDERED: METF-517 PO (18:22)
[2019-04-17] MEDS ORDERED: metFORMIN 500mg tablet PO ONE (18:25)
[2019-04-17] MEDS ORDERED: METF1000 PO (18:35)
[2019-04-17 18:38] VITALS: BP 110/62
== END 2019-04-17 18:55 | disposition home or self-care (01) ==
LOC: ER 16:38
DX: E11.65 Type 2 diabetes mellitus with hyperglycemia (principal); E78.00 Pure hypercholesterolemia, unspecified; I10 Essential (primary) hypertension; J45.909 Unspecified asthma, uncomplicated; M19.90 Unspecified osteoarthritis, unspecified site; G89.29 Other chronic pain; Z56.0 Unemployment, unspecified; Z95.1 Presence of aortocoronary bypass graft; Z79.899 Other long term (current) drug therapy; Z79.82 Long term (current) use of aspirin; Z79.4 Long term (current) use of insulin
CPT/HCPCS: 36415; 80053; 81001; 82948; 85025; 99283

== ENCOUNTER 2019-04-21 09:18 | Day surgery (SDC) | payer MEDICARE, MEDICAID ==
[~2019-04-21 09:18] MED LIST changes: +METF-517 PO; +METF1000 PO
[2019-04-21] MEDS ORDERED: LIDOcaine 2% 5ml jelly ONE (09:51)
== END 2019-04-21 10:37 | disposition home or self-care (01) ==
LOC: WOUND CARE 09:18
PROVIDERS: ATTEND Surgery
DX: T81.31XD Disruption of external operation (surgical) wound, not elsewhere classified, subsequent encounter (principal); E11.622 Type 2 diabetes mellitus with other skin ulcer; L98.492 Non-pressure chronic ulcer of skin of other sites with fat layer exposed; E11.65 Type 2 diabetes mellitus with hyperglycemia; I25.10 Atherosclerotic heart disease of native coronary artery without angina pectoris; G89.4 Chronic pain syndrome; E78.5 Hyperlipidemia, unspecified; E78.00 Pure hypercholesterolemia, unspecified; J45.909 Unspecified asthma, uncomplicated
CPT/HCPCS: 82948; 97597; A4663; A6021; A6154; A6212

== ENCOUNTER 2019-05-06 08:31 | Day surgery (SDC) | payer MEDICARE, MEDICAID ==
[~2019-05-06 08:31] MED LIST changes: -METF-517 PO
[2019-05-06] MEDS ORDERED: LIDOcaine/PRILOcaine 5gm cream TP ONE (09:22)
[2019-05-06] MEDS ORDERED: LIDOcaine 2% 5ml jelly ONE (09:44)
== END 2019-05-06 10:21 | disposition home or self-care (01) ==
LOC: WOUND CARE 08:31
PROVIDERS: ATTEND Surgery
DX: T81.31XD Disruption of external operation (surgical) wound, not elsewhere classified, subsequent encounter (principal); E11.622 Type 2 diabetes mellitus with other skin ulcer; L98.492 Non-pressure chronic ulcer of skin of other sites with fat layer exposed; E11.65 Type 2 diabetes mellitus with hyperglycemia; I25.10 Atherosclerotic heart disease of native coronary artery without angina pectoris; G89.4 Chronic pain syndrome; E78.5 Hyperlipidemia, unspecified; E78.00 Pure hypercholesterolemia, unspecified; E66.01 Morbid (severe) obesity due to excess calories; J45.909 Unspecified asthma, uncomplicated; M19.90 Unspecified osteoarthritis, unspecified site; I11.0 Hypertensive heart disease with heart failure; I50.32 Chronic diastolic (congestive) heart failure; F41.9 Anxiety disorder, unspecified; Z68.35 Body mass index [BMI] 35.0-35.9, adult; Z79.82 Long term (current) use of aspirin; Z79.4 Long term (current) use of insulin; Z79.899 Other long term (current) drug therapy; Z95.1 Presence of aortocoronary bypass graft; Z79.891 Long term (current) use of opiate analgesic; Z79.84 Long term (current) use of oral hypoglycemic drugs; Z87.891 Personal history of nicotine dependence
CPT/HCPCS: 36416; 82948; 97597; A6209; A4663; A6021

== ENCOUNTER 2019-05-20 08:14 | Outpatient (CLI) | payer MEDICARE, MEDICAID ==
[~2019-05-20 08:14] MED LIST changes: -METF1000 PO
== END 2019-05-20 10:41 | disposition home or self-care (01) ==
LOC: WOUND CARE 08:14 → EDSTATUS 09:00 → WOUND CARE 10:41
PROVIDERS: ATTEND Surgery
DX: T81.31XD Disruption of external operation (surgical) wound, not elsewhere classified, subsequent encounter (principal); E11.622 Type 2 diabetes mellitus with other skin ulcer; L98.492 Non-pressure chronic ulcer of skin of other sites with fat layer exposed; E11.65 Type 2 diabetes mellitus with hyperglycemia; I25.10 Atherosclerotic heart disease of native coronary artery without angina pectoris; G89.4 Chronic pain syndrome; E78.5 Hyperlipidemia, unspecified; E78.00 Pure hypercholesterolemia, unspecified; E66.01 Morbid (severe) obesity due to excess calories; J45.909 Unspecified asthma, uncomplicated; M19.90 Unspecified osteoarthritis, unspecified site; I11.0 Hypertensive heart disease with heart failure; I50.32 Chronic diastolic (congestive) heart failure; F41.9 Anxiety disorder, unspecified; Z68.35 Body mass index [BMI] 35.0-35.9, adult; Z79.82 Long term (current) use of aspirin; Z79.4 Long term (current) use of insulin; Z79.899 Other long term (current) drug therapy; Z95.1 Presence of aortocoronary bypass graft; Z79.891 Long term (current) use of opiate analgesic; Z79.84 Long term (current) use of oral hypoglycemic drugs; Z87.891 Personal history of nicotine dependence
CPT/HCPCS: 36416; 82948; G0463; A4663

== ENCOUNTER 2019-05-23 20:11 | Emergency (ER) | payer MEDICARE, MEDICAID ==
[~2019-05-23] VITALS: Ht 165.1 cm; Wt 88.6 kg
[2019-05-23 21:14] LABS: BASOPHILS # (AUTO) 0.1 X10'3 (0-0.2); EOSINOPHILS # (AUTO) 0.3 X10'3 (0-0.9); EOSINOPHILS % (AUTO) 4.8 % (0-6); HEMATOCRIT 32.9 % (35.0-45.0); HEMOGLOBIN 10.5 g/dl (12.0-16.0); LYMPHOCYTES # (AUTO) 2.3 X10'3 (1.1-4.8); LYMPHOCYTES % (AUTO) 33.7 % (21-51); MEAN CORPUSCULAR HEMOGLOBIN 24.2 PG (27.0-31.0); MEAN CORPUSCULAR HGB CONC 32.1 g/dL (33.0-36.5); MEAN CORPUSCULAR VOLUME 75.5 FL (78-98); MEAN PLATELET VOLUME 7.4 FL (7.4-10.4); MONOCYTES # (AUTO) 0.6 X10'3 (0-0.9); MONOCYTES % (AUTO) 8.8 % (2-12); NEUTROPHILS # (AUTO) 3.6 X10'3 (1.8-7.7); NEUTROPHILS % (AUTO) 51.7 % (42-75); PLATELET COUNT 347 X10'3 (140-440); RED BLOOD COUNT 4.35 X10'6 (4.20-5.60); RED CELL DISTRIBUTION WIDTH 15.7 % (11.5-14.5); WHITE BLOOD COUNT 6.9 X10'3 (4.5-11.0)
--- NOTE | 2019-05-23 21:14 | NUR ---
pt is 64 yo female c/o left sided abd pain, had left kidney removed one month ago. had 3 way bypass in November, abd pain is constant, no n/v, no fever/chills, last BM 2 days ago, waiting to be evaluated
[2019-05-23 21:23] LABS: ALANINE AMINOTRANSFERASE 21 U/L (12-78); ALBUMIN 3.5 G/DL (3.4-5.0); ALBUMIN/GLOBULIN RATIO 0.9 (1.1-1.5); ALKALINE PHOSPHATASE 82 IU/L (46-116); ANION GAP 7 (8-16); ASPARTATE AMINO TRANSFERASE 16 U/L (10-37); BILIRUBIN,TOTAL 0.2 MG/DL (0.1-1.0); BLOOD UREA NITROGEN 23 MG/DL (7-18); BUN/CREATININE RATIO 14.8 (6.6-38.0); CHLORIDE 100 MMOL/L (99-107); CREATININE 1.55 MG/DL (0.40-0.90); GLUCOSE 170 MG/DL (70-104); LIPASE 115 U/L (73-393); POTASSIUM 5.1 MMOL/L (3.5-5.1); SODIUM 137 MMOL/L (135-145); TOTAL CARBON DIOXIDE 30.3 MMOL/L (24-32); TOTAL PROTEIN 7.5 G/DL (6.4-8.2); eGFR 33 ML/MIN
[2019-05-23 21:38] LABS: CLARITY,URINE CLEAR (Clear); COLOR,URINE YELLOW (Yellow); GLUCOSE, URINE NEGATIVE (Neg); KETONES,URINE NEGATIVE (Neg); LEUKOCYTE ESTERASE ,URINE NEGATIVE (Neg); NITRITES, URINE NEGATIVE (Neg); OCCULT BLOOD,URINE NEGATIVE (Neg); PH,URINE 6.5 (4.8-8.0); PROTEIN,URINE NEGATIVE (Neg); UROBILINOGEN,URINE 0.2 E.U/dL (0.2-1.0)
[2019-05-23] MEDS ORDERED: normal saline 1000ML IV soln IVB ONE (21:40)
[2019-05-23 21:44] LABS: UA COLLECTION TYPE VOIDED
--- NOTE | 2019-05-23 21:55 | NUR ---
pt to CT
[2019-05-23 23:00] VITALS: BP 143/75
[2019-05-23] MEDS ORDERED: FURO-150 PO (23:13)
[2019-05-23] MEDS ORDERED: METF500T PO (23:13)
[2019-05-23] MEDS ORDERED: APIX5TAB3 PO (23:13)
[2019-05-23] MEDS ORDERED: CEPH500C5 PO (23:34)
== END 2019-05-23 23:53 | disposition home or self-care (01) ==
LOC: ER 20:14
DX: G89.18 Other acute postprocedural pain (principal); R10.9 Unspecified abdominal pain; E78.00 Pure hypercholesterolemia, unspecified; I10 Essential (primary) hypertension; J45.909 Unspecified asthma, uncomplicated; E11.9 Type 2 diabetes mellitus without complications; M19.90 Unspecified osteoarthritis, unspecified site; F41.9 Anxiety disorder, unspecified; Z95.1 Presence of aortocoronary bypass graft; Z98.890 Other specified postprocedural states; Z56.0 Unemployment, unspecified; Z79.01 Long term (current) use of anticoagulants; Z79.4 Long term (current) use of insulin; Z79.899 Other long term (current) drug therapy
CPT/HCPCS: 36415; 74176; 80053; 81003; 83605; 83690; 84145; 85025; 87040; 99285; J7030